=== PATIENT | male | born 2000 | race African-American/Black ===

== ENCOUNTER 2023-10-29 09:58 | Emergency (ER) | payer MEDICAID ==
[~2023-10-29] VITALS: Ht 180.3 cm; Wt 172.0 kg
[2023-10-29 10:02] VITALS: O2SAT 100
[2023-10-29] MEDS ORDERED: DEXAMETHASONE 10 MG/ML VIAL PO ONE (10:30)
[2023-10-29] MEDS ORDERED: IPRATROPIUM/ALBUTEROL 0.5-3(2.5)MG/3ML NEB HHN ONE (10:30)
[2023-10-29 10:40] VITALS: PULSE 111; RESP 22
[2023-10-29] MEDS ORDERED: ALBU6.7H15 INH (12:44)
[2023-10-29 13:51] VITALS: BP 118/56; PULSE 98; RESP 22; TEMP 98.4
== END 2023-10-29 13:52 | disposition home or self-care (01) ==
LOC: ER 11:06
DX: J45.909 Unspecified asthma, uncomplicated (principal)
CPT/HCPCS: 71045; 94640; 93005; 99283; J1100; Z7610 ×5